=== PATIENT | female | born 1965 | race Caucasian/White ===

== ENCOUNTER 2019-07-26 17:28 | Emergency (ER) | payer MEDICAID, SELFPAY ==
[~2019-07-26] VITALS: Ht 154.9 cm; Wt 76.2 kg
--- NOTE | 2019-07-26 17:28 | NUR ---
Patient to ER bed 7 to gown for evaluation. Side rails up.
[2019-07-26 17:32] VITALS: BP_SYST 152
--- NOTE | 2019-07-26 17:32 | NUR ---
Patient presented to ER C/O SOB. Patient A&Ox4, ambulatory to ER, afebrile, skin pink and warm, placed on pulse-ox monitor and court recording monitor upon arrival, saturation 96%, pain 10/10, denies N/V/D, cough. Patient states she has COVID-19 positive test 07/15/2019, today has cough with SOB.
--- NOTE | 2019-07-26 17:36 | NUR ---
ER Dr. RIVERS at bedside examining patient.
--- NOTE | 2019-07-26 17:40 | NUR ---
Radiology at bedside for portable x-ray.
[2019-07-26 18:17] LABS: BASOPHILS % (AUTO) 0.6 % (0.0-2.0); EOSINOPHILS % (AUTO) 0.2 % (0.0-4.0); HEMATOCRIT 40.1 % (36-48); HEMOGLOBIN 13.1 g/dL (12.0-16.0); LYMPHOCYTES # (AUTO) 1.2 K/uL (1.0-5.5); LYMPHOCYTES % (AUTO) 20.8 % (20.5-51.5); MEAN CORPUSCULAR HEMOGLOBIN 28 pg (27-31); MEAN CORPUSCULAR HGB CONC 33 % (32-36); MEAN CORPUSCULAR VOLUME 85 fL (79.0-98.0); MONOCYTES # (AUTO) 0.4 K/uL (0.0-1.0); MONOCYTES % (AUTO) 6.9 % (1.7-9.3); NEUTROPHILS # (AUTO) 4.1 K/uL (1.8-7.7); NEUTROPHILS % (AUTO) 71.5 % (40.0-70.0); PLATELET COUNT (AUTO) 253 K/uL (130-430); RED BLOOD CELL COUNT(AUTO) 4.72 MIL/uL (4.2-6.2); RED CELL DISTRIBUTION WIDTH 12.8 % (9.0-15.0); WHITE BLOOD COUNT (AUTO) 5.7 K/uL (4.8-10.8)
[2019-07-26 18:23] LABS: CALCIUM 8.6 mg/dL (8.4-11.0); CREATININE 0.73 mg/dL (0.55-1.30); POTASSIUM 3.3 mmol/L (3.5-5.1)
[2019-07-26 18:28] LABS: ALBUMIN 3.2 g/dL (3.4-4.8); TOTAL BILIRUBIN 0.5 mg/dL (0.0-1.0)
[2019-07-26] MEDS ORDERED: KETOROLAC TROMETHAMINE 60 MG/2 ML VIAL IM ONE (19:00)
--- NOTE | 2019-07-26 19:14 | NUR ---
Report to Trell MORELOS
--- NOTE | 2019-07-26 19:36 | NUR ---
recieved report. pt stable. VSS, cont to C/O headache. Medicated as ordered. Side Rails up . A/O
[2019-07-26 20:47] VITALS: BP_SYST 152
--- NOTE | 2019-07-26 20:48 | NUR ---
Patient given written and verbal discharge instructions and verbalizes understanding. ER MD discussed with patient the results and treatment provided. Patient in stable condition. ID arm band removed. IV catheter removed intact and dressing applied, no active bleeding. Rx of norco, albuterol, and prednisone given. Patient educated on pain management and to follow up with PMD. Pain Scale 2/10. Opportunity for questions provided and answered. Medication side effect fact sheet provided.
--- NOTE | 2019-07-29 12:32 | NUR ---
Patient called and notified her "Detected" COVID-19 laboratory test result, patient refuse to be send "Home Isolation instructions" and accept verbal Home Isolation instructions, patient verbalizes understanding.
== END 2019-07-26 20:48 | disposition home or self-care (01) ==
LOC: EEVIPCON 17:28 → SED 17:28
DX: U07.1 COVID-19 (principal); J40 Bronchitis, not specified as acute or chronic; K21.9 Gastro-esophageal reflux disease without esophagitis; Z88.0 Allergy status to penicillin
CPT/HCPCS: 70450; 71045; 80053; 83880; 84484; 84703; 85025; 85379; 85610; 85730; 93005; 96372; 99285; C9803; J1885; U0003